=== PATIENT | male | born 1965 | race Caucasian/White ===

== ENCOUNTER → 2021-03-05 16:01 | Outpatient (BNVA) | payer MEDICARE, SELFPAY | PROVIDERS: Visit Provider Nurse Practitioner Family | DX: I10 Essential (primary) hypertension (principal); R03.0 Elevated blood-pressure reading, without diagnosis of hypertension; Z12.5 Encounter for screening for malignant neoplasm of prostate; Z68.34 Body mass index [BMI] 34.0-34.9, adult | CPT/HCPCS: 80053; 80061; 85025; G0103 ==

== ENCOUNTER → 2021-03-08 10:54 | Outpatient (BNVA) | payer MEDICARE, SELFPAY | PROVIDERS: Visit Provider Nurse Practitioner Family | DX: I10 Essential (primary) hypertension (principal) | CPT/HCPCS: 80053 ==

== ENCOUNTER 2021-07-30 14:06 | Inpatient (IN) | payer MEDICARE, SELFPAY ==
[2021-07-30] VITALS (10 sets, daily range): BP systolic 129–144; BP diastolic 66–87; PULSE 89–101; RESP 16–18; TEMP 36.5–37.6; O2SAT 93–99; BMI 34.7
--- NOTE | 2021-07-30 14:43 | W.ED.ABDPA2 ---
HPI - Abdominal Pain General: Chief Complaint: Abdominal Pain Stated Complaint: abdomen pain Time Seen by Provider: 07/30/21 14:38 Source: patient Mode of arrival: ambulatory Limitations: no limitations History of Present Illness: 55-year-old male presents to the emergency room with complaints of abdominal pain states been going on for last 3 days began after he did some heavy lifting while working outside states he felt a pulling sensation in his abdomen since then he has had very few stools have been black in nature he just generally not felt well he continues to this diffuse abdominal pain was able to get him to localize it more to the left lower quadrant denies any hematochezia melena hematemesis coffee-ground emesis no dysuria urgency or frequency. He has been very nauseous. MD elicited complaint: abdominal pain Onset (ago): day(s) Pain Consistency: constant Quality: cramping Radiation: none Migration to: no migration Exacerbating factors: eating and movement Relieving factors: rest Associated Symptoms: Reports bloating, change in bowel habits, GI cramping and melena; Denies anorexia, belching, change in stool character, chills, coffee ground emesis, constipation, diarrhea, dyspepsia, dysuria, excessive flatus, fever(s), heartburn, hematochezia, hematuria, hematemesis, fecal incontinence, loose stools, nausea, poor appetite, syncope and vomiting Review of Systems Const: Denies: fever(s) or chills ENMT: Denies: throat pain, ear or mastoid pain, nasal discharge or nasal congestion Card: Denies: syncope Resp: Denies: dyspnea, productive cough or non-productive cough GI: Reports: bloating, GI cramping, change in bowel habits and melena; Denies: nausea, vomiting, hematemesis, coffee ground emesis, heartburn, diarrhea, constipation, belching, excessive flatus, fecal incontinence, change in stool character or hematochezia : Denies: flank pain, difficulty urinating, dysuria, urinary frequency, urinary urgency or hematuria Skin/Breast: Denies: rash or pruritus PFS ED PFSH: Medical History Neuropathy Surgical History History of laminectomy History of spinal fusion 2004 Family History Grandmother CAD (coronary artery disease) Grandfather CAD (coronary artery disease) Father Cancer Mother Multiple sclerosis Social History Smoking and tobacco status: current some day smoker cigarettes [ Other cigarette details: only occasionally] Alcohol intake: current Alcohol intake frequency: few times a month Physical Exam Const: COMMON NORMALS: no acute distress GENERAL APPEARANCE: cooperative and comfortable ORIENTATION/CONSCIOUSNESS: Yes awake, Yes oriented to person, Yes oriented to place and Yes oriented to time HENMT: COMMON NORMALS: normocephalic, atraumatic and hearing grossly normal bilaterally HEAD & SCALP: normocephalic and atraumatic Neck/C-Spine: COMMON NORMALS: no JVD Resp: COMMON NORMALS: normal respiratory effort, No retractions, No use of accessory muscles and clear to auscultation bilaterally AUSCULTATION: clear to auscultation bilaterally Cardio: COMMON NORMALS: no JVD, regular rate, regular rhythm and No murmurs present (Cardio) RATE: regular rate RHYTHM: regular rhythm GI: COMMON NORMALS: Soft to palpation and No hepatosplenomegaly present AUSCULTATION: Yes normoactive bowel sounds PALPATION: Yes Soft to palpation, No Tenderness to palpation present (GI), No Guarding due to palpation present (GI) and Yes No hepatosplenomegaly present Extremity: COMMON NORMALS: normal to inspection, capillary refill normal, no clubbing, cyanosis or edema, no calf tenderness and no pedal edema Neuro: SENSORIUM/ORIENTATION: Yes oriented to person, Yes oriented to place and Yes oriented to time Skin: COMMON NORMALS: no rashes or lesions noted GENERAL SKIN EXAM: no rashes or lesions noted Course Vital Signs: Vital signs: Vital Signs Temperature 99.7 F H 07/30/21 14:26 Pulse Rate 97 07/30/21 15:27 Respiratory Rate 16 07/30/21 15:27 Blood Pressure 135/87 07/30/21 15:27 Pulse Oximetry 95 07/30/21 15:27 MDM - Abdominal Pain Medical Decision Making Pyelonephritis microabscess. Reviewed with Dr. Cazares as well as with Dr. Lyon. At this point Dr. Lyon did not feel there is any interventions or procedures he would need to undertake for this hospitalization with IV antibiotics discussed with hospitalist orders written Medical Records I reviewed the patient's medical records. Lab Data I reviewed the patient's lab results. : 07/30/21 14:50 07/30/21 16:08 Labs/Radiology: Radiology Impressions Abdomen/Pelvis CT 07/30/21 15:06 IMPRESSION: 1. Moderate to severe LEFT pyelonephritis with small microabscesses developing in the upper pole cortex. 2. Moderate perinephric edematous stranding with thickening of the perirenal fascia. 3. Prior appendectomy. Laboratory Results WBC 18.2 10^3/uL (4.0-10.0) H 07/30/21 14:50 RBC 4.98 10^6/uL (4.1-5.3) 07/30/21 14:50 Hgb 15.3 g/dL (11.7-16.6) 07/30/21 14:50 Hct 44.4 % (42.0-52.0) 07/30/21 14:50 MCV 89.2 fl (80-94) 07/30/21 14:50 MCH 30.7 pg (28.0-34.0) 07/30/21 14:50 MCHC 34.5 g/dL (30.0-36.0) 07/30/21 14:50 RDW 12.8 % (12.1-15.1) 07/30/21 14:50 Plt Count 232 10^3/cmm (130-400) 07/30/21 14:50 MPV 9.7 fL (7.4-10.4) 07/30/21 14:50 Neut % (Auto) 76.2 % 07/30/21 14:50 Lymph % (Auto) 10.4 % 07/30/21 14:50 Edmunds % (Auto) 11.9 % 07/30/21 14:50 Eos % (Auto) 0.6 % 07/30/21 14:50 Baso % (Auto) 0.3 % 07/30/21 14:50 Neut # (Auto) 13.85 10^3/uL (1.8-7.7) H 07/30/21 14:50 Lymph # (Auto) 1.9 10^3/uL (0.8-4.8) 07/30/21 14:50 Edmunds # (Auto) 2.2 10^3/uL (0.2-0.9) H 07/30/21 14:50 Eos # (Auto) 0.1 10^3/uL (0.0-0.8) 07/30/21 14:50 Baso # (Auto) 0.1 10^3/uL (0.0-0.1) 07/30/21 14:50 Nucleated RBC % (auto) 0 % 07/30/21 14:50 Nucleated RBCs # 0.0 /100WBC 07/30/21 14:50 Sodium 133 mmol/L (136-145) L 07/30/21 16:08 Potassium 3.7 mmol/L (3.5-5.1) 07/30/21 16:08 Chloride 96 mmol/L (98-107) L 07/30/21 16:08 Carbon Dioxide 24 mmol/L (22-29) 07/30/21 16:08 Anion Gap 16.7 (5-19) 07/30/21 16:08 BUN 10 mg/dL (6-20) 07/30/21 16:08 Creatinine 0.9 mg/dL (0.7-1.2) 07/30/21 16:08 GFR Calculation 87.6 mL/min (90-130) L 07/30/21 16:08 Glucose 91 mg/dL (65-115) 07/30/21 16:08 Calculated Osmolality 275 mOsm/kg (285-295) L 07/30/21 16:08 Lactic Acid 0.9 mmol/L (0.5-2.2) 07/30/21 16:40 Calcium 8.8 mg/dL (8.5-10.5) 07/30/21 16:08 Total Bilirubin 1.0 mg/dL (0.15-1.2) 07/30/21 16:08 AST 19 U/L (0-40) 07/30/21 16:08 ALT 33 U/L (0-41) 07/30/21 16:08 Alkaline Phosphatase 75 IU/L (40-130) 07/30/21 16:08 Total Protein 6.9 g/dL (6.6-8.7) 07/30/21 16:08 Albumin 3.7 g/dL (3.5-5.2) 07/30/21 16:08 Globulin 3.2 g/dL (1.3-4.6) 07/30/21 16:08 Lipase 14 U/L (13-60) 07/30/21 16:08 Urine Color Dark yellow (Yellow) 07/30/21 15:25 Urine Appearance Clear (CLEAR) 07/30/21 15:25 Urine pH 5 (5-7) 07/30/21 15:25 Ur Specific [place] 1.020 (1.005-1.030) 07/30/21 15:25 Urine Protein Trace (Negative) 07/30/21 15:25 Urine Glucose (UA) Norm (Normal) 07/30/21 15:25 Urine Ketones 2+ (Negative) H 07/30/21 15:25 Urine Blood 3+ (Negative) H 07/30/21 15:25 Urine Nitrate Negative (Negative) 07/30/21 15:25 Urine Bilirubin 1+ (Negative) H 07/30/21 15:25 Urine Urobilinogen 4 mg/dL (Negative) H 07/30/21 15:25 Ur Leukocyte Esterase Negative (Negative) 07/30/21 15:25 Urine RBC Rare /hpf (0-2) 07/30/21 15:25 Urine WBC 0-4 /hpf (0-5) H 07/30/21 15:25 Ur Squamous Epith Cells None /hpf (0-5) 07/30/21 15:25 Amorphous Sediment Not Reportable 07/30/21 15:25 Urine Bacteria Trace /hpf (NONE) 07/30/21 15:25 Discharge Plan Discharge Patient Disposition: Admitted As Inpatient Clinical Impression: Acute pyelonephritis Condition: Stable Prescriptions: No Action trazodone 150 mg tablet 150 mg PO BEDTIME PRN (Reason: Sleep) 0RF gabapentin 600 mg tablet 600 mg PO QID Qty: 120 5RF ibuprofen 200 mg Tablet 600 mg PO Q8H PRN (Reason: Pain) 0RF loratadine [Claritin] 10 mg Tablet 10 mg PO BEDTIME 0RF Patient Instructions: Opioid Safety Coding Level of Care Code ED Medical Records Coordinator for Kristing Fwd Exam Comprehensive
--- NOTE | 2021-07-30 15:06 | CT_ITS ---
WS: [id number] CT ABDOMEN AND PELVIS WITH CONTRAST HISTORY: abd pain TECHNIQUE: Imaging performed of the abdomen and pelvis with IV contrast. Single phase imaging of the abdomen. Coronal and sagittal reformats are submitted. All CT scans at [facility] use at [facility] one of these dose optimization techniques: automated exposure control; mA and/or kV adjustment per patient size (includes targeted exams where dose is matched to clinical indication); or iterative re construction. IV CONTRAST: Omnipaque 300; 95 mL IV. Oral contrast: No DLP: 1925.6 mGy.cm COMPARISON: None available. Lower thorax: Mild dependent changes at the lung bases. Heart is normal size. No hiatal hernia. Liver/biliary system: Normal size with no intrahepatic dilatation. Normal portal vein enhancement. Gallbladder: Normal. No gallstones or wall thickening. No pericholecystic fluid. Pancreas: Normal size pancreas and pancreatic duct. No adjacent inflammation. Spleen: Normal size spleen. No mass or infarct. Adrenal glands: Normal. Right kidney: Normal size kidney. 5 mm cortical hypodensity in the mid kidney. No obstruction. Left kidney: Abnormal kidney. There is moderate enlargement and perinephric stranding. Area of decrea sed enhancement involving a large portion of the upper pole. There are small developing microabscesse s in the upper pole cortex. Wedge-shaped area of limited enhancement in the mid kidney. There is a sm all cortical cyst measuring 1.2 cm in the mid kidney. In the upper pole there are small loculated flu id collections involving the cortex of the kidney. There is a moderate amount of adjacent perinephric stranding with thickening of the perirenal fascia. No obstruction of the kidney. Aorta: Mild atherosclerosis aorta. The proximal mesenteric arteries are well-opacified. Mild atherosc lerotic plaque in the mid SMA. Renal arteries are both enhancing. Lymphadenopathy: None. Free fluid: None. GI tract: Negative study stomach and small bowel. No obstruction. Slight increased amount of fluid wi thin the colon. Prior appendectomy. Abdominal wall: Fat containing umbilical hernia. Pelvis: No free fluid in the pelvis. Mild enlargement the prostate gland with central calcification. Bones: Posterior lumbar fusion at L4-5. CT/CT abdomen pelvis w con* [id number] IMPRESSION: 1. Moderate to severe LEFT pyelonephritis with small microabscesses developing in the upper pole cortex. 2. Moderate perinephric edematous stranding with thickening of the perirenal f ascia. 3. Prior appendectomy.
[2021-07-30 15:18] LABS: Basophils # 0.1 10^3/uL (0.0-0.1); Basophils % 0.3 %; Eosinophils # 0.1 10^3/uL (0.0-0.8); Eosinophils % 0.6 %; Hematocrit 44.4 % (42.0-52.0); Hemoglobin 15.3 g/dL (11.7-16.6); Lymphocytes # 1.9 10^3/uL (0.8-4.8); Lymphocytes % 10.4 %; Mean Corpuscular HGB Conc 34.5 g/dL (30.0-36.0); Mean Corpuscular Hemoglobin 30.7 pg (28.0-34.0); Mean Corpuscular Volume 89.2 fl (80-94); Mean Platelet Volume 9.7 fL (7.4-10.4); Monocytes # 2.2 10^3/uL (0.2-0.9); Monocytes % 11.9 %; Neutrophils # 13.85 10^3/uL (1.8-7.7); Neutrophils % 76.2 %; Nucleated Red Blood Cells % 0 %; Platelet Count 232 10^3/cmm (130-400); Red Blood Count 4.98 10^6/uL (4.1-5.3); Red Cell Distribution Width 12.8 % (12.1-15.1); White Blood Count 18.2 10^3/uL (4.0-10.0)
[2021-07-30] MEDS: sodium chloride 0.9% 1,000 ML 999 ML IV (15:19)
[2021-07-30] MEDS: iohexol 300 mg/mL 100 mL Btl IV (15:33)
[2021-07-30 16:06] LABS: Add Urine Microscopic? YES; Bilirubin Urine 1+ (Negative); Blood Urine 3+ (Negative); Glucose Urine UA Norm (Normal); Ketones Urine 2+ (Negative); Leukocyte Esterase Urine Negative (Negative); Nitrate Urine Negative (Negative); Protein Urine Trace (Negative); Urine Appearance Clear (CLEAR); Urine Color Dark Yellow (Yellow); Urobilinogen Urine 4 mg/dL (Negative); pH Urine 5 (5-7)
[2021-07-30 16:07] LABS: Add Urine Culture? No; Bacteria Urine TRACE /hpf; RBC Urine RARE /hpf (0-2); WBC Urine 0-4 /hpf (0-5)
[2021-07-30] MEDS: cefTRIAXone 1,000 MG in sodium chloride 0.9% (plus) 50 ML 100 MG IV (16:39)
[2021-07-30 16:58] LABS: Alanine Aminotransferase 33 U/L (0-41); Albumin Level 3.7 g/dL (3.5-5.2); Alkaline Phosphatase 75 IU/L (40-130); Blood Urea Nitrogen 10 mg/dL (6-20); Calcium 8.8 mg/dL (8.5-10.5); Carbon Dioxide 24 mmol/L (22-29); Chloride 96 mmol/L (98-107); Creatinine Clr Calc Pharmacy 111.5725; Globulin 3.2 g/dL (1.3-4.6); Glomerular Filtration Rate 87.6 mL/min (90-130); Glucose 91 mg/dL (65-115); Lipase 14 U/L (13-60); Osmolality Calculated 275 mOsm/kg (285-295); Sodium 133 mmol/L (136-145); Total Protein 6.9 g/dL (6.6-8.7)
[2021-07-30 17:04] LABS: Anion Gap 16.7 (5-19); Aspartate Amino Transferase 19 U/L (0-40); Potassium 3.7 mmol/L (3.5-5.1)
[2021-07-30 17:11] LABS: Lactic Sepsis W/Reflex 0.9 mmol/L (0.5-2.2)
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
[2021-07-30 18:29] LABS: Procalcitonin 0.14 ng/mL (0-0.5)
[2021-07-30] MEDS: sodium chloride 0.9% 1,000 ML 75 ML IV (19:51)
[2021-07-30] MEDS: piperacillin-tazobactam 3.375 GM in sodium chloride 0.9% (plus) 50 ML IV (19:52)
[2021-07-30 20:01] LABS: Thyroid Stimulating Hormone 1.26 uIU/mL (0.27-4.20)
[2021-07-30] MEDS: trazodone 150 mg Tablet PO (20:03)
[2021-07-30] MEDS: gabapentin 300 mg Capsule 600 MG PO (20:03)
[2021-07-30] MEDS: loratadine 10 mg Tablet PO (20:03)
[2021-07-30] MEDS: morphine 4 mg/mL SDV 1 mL IVP (21:05)
[2021-07-30 21:17] LABS: Estmated Average Glucose 105; Hemoglobin A1C 5.3 % (4.0-6.0)
[2021-07-30 21:51] LABS: Amphetamines Screen Urine Negative (Negative); Barbiturates Screen Urine Negative (Negative); Benzodiazepines Screen Urine Negative (Negative); Cocaine Screen Urine Negative (Negative); Opiate Screen Urine Negative (Negative); PCP Screen Urine Negative (Negative); THC Screen Urine Positive (Negative)
[2021-07-31] VITALS (9 sets, daily range): BP systolic 139–155; BP diastolic 85–99; PULSE 90–102; RESP 16–20; TEMP 36.6–37.1; O2SAT 92–96
[2021-07-31] MEDS: morphine 4 mg/mL SDV 1 mL IVP ×3 (01:06→17:13)
[2021-07-31] MEDS: piperacillin-tazobactam 3.375 GM in sodium chloride 0.9% (plus) 50 ML IV ×3 (03:16→19:51)
[2021-07-31] MEDS: gabapentin 300 mg Capsule 600 MG PO ×4 (03:40→20:46)
--- NOTE | 2021-07-31 05:26 | NUR.SHIFT ---
Patient up most of this shift. Multiple complaints of pain made even after PRN pain medications were given along with scheduled home medications. Patient states that pain is in his abdomen and also from his neuropathy in his feet. Patient did have concern about timing of gabapentin, pharmacy contacted and times changed to align with patient's home schedule QID. Alert and oriented and up ad mauricio in room without distress. Noted to be sitting at bedside this morning. Voiding WNL. Ambulates without device without difficulty. Did have complaint about IV pump infusion noise so ear plugs were found and given to patient for comfort. IV in right AC infusing NS at 75ml/hr also used for IV antibiotics, IV in left hand occluded and removed this shift. Urine specimen collected and sent to lab per orders.
[2021-07-31 06:04] LABS: Basophils # 0.1 10^3/uL (0.0-0.1); Basophils % 0.4 %; Eosinophils # 0.2 10^3/uL (0.0-0.8); Eosinophils % 1.7 %; Hematocrit 40.3 % (42.0-52.0); Hemoglobin 13.6 g/dL (11.7-16.6); Lymphocytes # 1.8 10^3/uL (0.8-4.8); Lymphocytes % 12.9 %; Mean Corpuscular HGB Conc 33.7 g/dL (30.0-36.0); Mean Corpuscular Hemoglobin 30.8 pg (28.0-34.0); Mean Corpuscular Volume 91.2 fl (80-94); Mean Platelet Volume 9.9 fL (7.4-10.4); Monocytes # 1.9 10^3/uL (0.2-0.9); Monocytes % 13.5 %; Neutrophils # 9.73 10^3/uL (1.8-7.7); Neutrophils % 70.8 %; Nucleated Red Blood Cells % 0 %; Platelet Count 213 10^3/cmm (130-400); Red Blood Count 4.42 10^6/uL (4.1-5.3); Red Cell Distribution Width 12.7 % (12.1-15.1); White Blood Count 13.7 10^3/uL (4.0-10.0)
[2021-07-31 06:25] LABS: C Reactive Protein 181.5 mg/L (0.0-4.9); Magnesium 2.1 mg/dL (1.7-2.3)
[2021-07-31 06:26] LABS: Anion Gap 19.3 (5-19); Blood Urea Nitrogen 10 mg/dL (6-20); Calcium 8.9 mg/dL (8.5-10.5); Carbon Dioxide 20 mmol/L (22-29); Chloride 101 mmol/L (98-107); Glomerular Filtration Rate 100.4 mL/min (90-130); Glucose 91 mg/dL (65-115); Osmolality Calculated 283 mOsm/kg (285-295); Potassium 3.3 mmol/L (3.5-5.1); Sodium 137 mmol/L (136-145)
--- NOTE | 2021-07-31 06:26 | PC.NURSE ---
Patient is independent and up ad mauricio in room. Encouraged to sit up in chair for breakfast.
[2021-07-31] MEDS: morphine IR 15 mg Tablet PO ×2 (12:49→20:49)
[2021-07-31] MEDS: sodium chloride 0.9% 1,000 ML 75 ML IV (13:20)
--- NOTE | 2021-07-31 13:43 | P.PN_ITS ---
Subjective Subjective: Seen and examined this morning. No acute events overnight. Patient states he feels better and the pain in his flank is also improved. Vitals/I&O/Wt Last Vital Signs Temp 98.0 F 07/31/21 11:18 Pulse 93 07/31/21 11:18 Resp 17 07/31/21 11:18 BP 140/94 07/31/21 11:18 Pulse Ox 95 07/31/21 11:18 07/30/21 07/31/21 07/31/21 22:59 06:59 14:59 Intake Total 1530 / 1530 50 / 1580 2210 / 2210 Balance 1530 / 1530 50 / 1580 2210 / 2210 Weight last 48 hrs Weight 106.594 kg Physical Exam Narrative: General: Alert oriented x3, patient seen sitting up in chair in good spirits. HEENT: Normocephalic, atraumatic, EOMI, breathing normally Cardio: Regular rate rhythm, normal S1-S2_ Respiratory: Good bilateral air entry, no wheezes no rhonchi appreciated GI: Abdomen soft, Behavior: Appropriate and cooperative Extremities: No lower extremity edema Data : 07/31/21 05:10 07/31/21 05:10 Micro: Microbiology 07/30/21 16:40 Blood Culture - Preliminary Blood Staphylococcus epidermidis 07/30/21 16:40 Blood Culture - Preliminary Blood SPECIMEN COLLECTED A&P Assessment and plan (1) Acute pyelonephritis: Status: Acute (2) Screening for malignant neoplasm of prostate: Status: Acute (3) Essential hypertension: Status: Acute (4) Neuropathy: Status: Acute Plan #Acute pyelonephritis with microabscesses in upper pole #Benign prostatic hyperplasia ?We will continue patient on Zosyn until results of urine culture come back ?He will need a urology referral at discharge. Patient does not want to start any BPH medications while here. ?Patient is also due for colonoscopy. We will give him referral for Dr. Taylor at discharge. ?Continue pain management with morphine and gabapentin for now. At home patient uses cannabinoid and gabapentin. ?PSA reviewed. ?Blood culture positive for staph epidermidis. Will repeat blood culture. Full code Attestations Medical Necessity Statement*: Requires inpatient stay due to IV antibiotics, positive blood culture. Need to see sensitivity culture for urine before discharge is appropriate antibiotics and course can be decided. 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
[2021-07-31 17:55] LABS: Bacillus cereus group Not Detected (NOT DETECT); Bacillus subtillis group Not Detected (NOT DETECT); Corynebacterium Not Detected (NOT DETECT); Cutibacterium acnes (P.acnes) Not Detected (NOT DETECT); Enterococcus Not Detected (NOT DETECT); Enterococcus faecalis Not Detected (NOT DETECT); Enterococcus faecium Not Detected (NOT DETECT); Lactobacillus species Not Detected (NOT DETECT); Listeria Not Detected (NOT DETECT); Listeria monocytogenes Not Detected (NOT DETECT); Micrococcus Not Detected (NOT DETECT); Pan Candida Not Detected (NOT DETECT); Pan Gram-Negative Not Detected (NOT DETECT); Staphylococcus epidermidis Detected (NOT DETECT); Staphylococcus lugdunensis Not Detected (NOT DETECT); Staphylococcus species Detected (NOT DETECT); Streptococcus agalactiae Not Detected (NOT DETECT); Streptococcus anginosus group Not Detected (NOT DETECT); Streptococcus pneumoniae Not Detected (NOT DETECT); Streptococcus pyogenes Not Detected (NOT DETECT); Streptococcus species Not Detected (NOT DETECT); mecA Detected (NOT DETECT); mecC Not Detected (NOT DETECT)
[2021-07-31] MEDS: loratadine 10 mg Tablet PO (20:46)
[2021-07-31] MEDS: trazodone 150 mg Tablet PO (20:46)
[2021-08-01] VITALS (10 sets, daily range): BP systolic 129–157; BP diastolic 85–111; PULSE 81–100; RESP 14–18; TEMP 36.8–37.1; O2SAT 90–95
[2021-08-01] MEDS: sodium chloride 0.9% 1,000 ML 75 ML IV ×2 (00:23→13:56)
[2021-08-01] MEDS: gabapentin 300 mg Capsule 600 MG PO ×4 (03:39→21:54)
[2021-08-01] MEDS: piperacillin-tazobactam 3.375 GM in sodium chloride 0.9% (plus) 50 ML IV ×3 (03:41→21:55)
[2021-08-01 06:15] LABS: Basophils # 0.1 10^3/uL (0.0-0.1); Basophils % 0.5 %; Eosinophils # 0.3 10^3/uL (0.0-0.8); Eosinophils % 2.6 %; Hematocrit 41.2 % (42.0-52.0); Hemoglobin 14.1 g/dL (11.7-16.6); Lymphocytes # 1.5 10^3/uL (0.8-4.8); Lymphocytes % 11.1 %; Mean Corpuscular HGB Conc 34.2 g/dL (30.0-36.0); Mean Corpuscular Hemoglobin 30.5 pg (28.0-34.0); Mean Corpuscular Volume 89.2 fl (80-94); Mean Platelet Volume 9.8 fL (7.4-10.4); Monocytes # 1.7 10^3/uL (0.2-0.9); Neutrophils # 9.44 10^3/uL (1.8-7.7); Neutrophils % 72.3 %; Nucleated Red Blood Cells % 0 %; Platelet Count 275 10^3/cmm (130-400); Red Blood Count 4.62 10^6/uL (4.1-5.3); Red Cell Distribution Width 12.6 % (12.1-15.1); White Blood Count 13.1 10^3/uL (4.0-10.0)
[2021-08-01 07:00] LABS: Anion Gap 15.5 (5-19); Blood Urea Nitrogen 6 mg/dL (6-20); Calcium 9.2 mg/dL (8.5-10.5); Carbon Dioxide 23 mmol/L (22-29); Chloride 103 mmol/L (98-107); Glomerular Filtration Rate 117.1 mL/min (90-130); Glucose 105 mg/dL (65-115); Magnesium 2.1 mg/dL (1.7-2.3); Osmolality Calculated 284 mOsm/kg (285-295); Potassium 3.5 mmol/L (3.5-5.1); Sodium 138 mmol/L (136-145)
--- NOTE | 2021-08-01 11:32 | PM.PN ---
Subjective Subjective: seen this AM. Patient is feeling better. Urine culture still pending. Flank pain has improved. Staph epi in 1 BCx. Repeat BCx NTD Vitals/I&O/Wt Last Vital Signs Temp 98.7 F 08/01/21 08:02 Pulse 85 08/01/21 08:28 Resp 16 08/01/21 08:28 BP 129/88 08/01/21 08:02 Pulse Ox 95 08/01/21 08:28 07/31/21 08/01/21 08/01/21 22:59 06:59 14:59 Intake Total 50 / 2260 878.75 / 3138.75 170 / 170 Balance 50 / 2260 878.75 / 3138.75 170 / 170 Weight last 48 hrs Weight 106.594 kg Physical Exam Narrative: General: Alert oriented x3, patient seen sitting up in chair in good spirits. Cardio: Regular rate rhythm, normal S1-S2_ Respiratory: Good bilateral air entry, no wheezes no rhonchi appreciated GI: Abdomen soft, :no flank pain upon kidney punch Behavior: Appropriate and cooperative Extremities: No lower extremity edema Data : 08/01/21 05:25 08/01/21 05:25 Micro: Microbiology 07/30/21 16:40 Blood Culture - Preliminary Blood NEGATIVE TO DATE 07/31/21 15:04 Blood Culture - Preliminary Blood SPECIMEN COLLECTED 07/31/21 15:04 Blood Culture - Preliminary Blood SPECIMEN COLLECTED 07/30/21 16:40 Blood Culture - Preliminary Blood Staphylococcus epidermidis A&P Assessment and plan (1) Acute pyelonephritis: Status: Acute (2) Essential hypertension: Status: Acute (3) Systolic blood pressure greater than or equal to 140 mm Hg: Status: Acute (4) Neuropathy: Status: Acute Plan #Acute pyelonephritis with microabscesses in upper pole #Benign prostatic hyperplasia #Hypertension ?We will continue patient on Zosyn until results of urine culture come back ?He will need a urology referral at discharge.? Patient does not want to start any BPH medications while here. ?Patient is also due for colonoscopy.? We will give him referral for Dr. Taylor at discharge. ?Continue pain management with morphine and gabapentin for now.? At home patient uses cannabinoid and gabapentin. ?PSA reviewed. ?Blood culture positive for staph epidermidis.? Repeat BCX NTD - Will call lab to inquire about urine culture - Will discuss with pt need of starting anti-hypertensive medication Full Code Attestations Medical Necessity Statement*: > 24 hr stay. Awaiting urine culture results Coding Level of Care Code Acute Open End Spinning Operator for g Fwd Diagnoses Acute pyelonephritis N10 Essential hypertension I10 Systolic blood pressure greater than or equal to 140 mm Hg R03.0 Neuropathy G62.9
[2021-08-01] MEDS: ondansetron 2 mg/ML SDV 2 mL 4 MG IVP (13:03)
[2021-08-01 18:32] LABS: Chol HDL Ratio 6.32 mg/dL (1.0-5.00); Cholesterol 234 mg/dL (0-200); HDL Cholesterol 37 mg/dL (60-100); LDL Cholesterol Calculated 168 mg/dL (50-129); LDL HDL Ratio 4.54 RATIO (0.00-3.22); Triglycerides 143 mg/dL (0-150)
[2021-08-01] MEDS: morphine IR 15 mg Tablet PO (21:53)
[2021-08-01] MEDS: loratadine 10 mg Tablet PO (21:54)
[2021-08-01] MEDS: trazodone 150 mg Tablet PO (21:54)
[2021-08-01 22:10] LABS: Estmated Average Glucose 103; Hemoglobin A1C 5.2 % (4.0-6.0)
[2021-08-01] MEDS: morphine 4 mg/mL SDV 1 mL IVP (23:57)
[2021-08-02] VITALS (8 sets, daily range): BP systolic 129–164; BP diastolic 71–87; PULSE 78–96; RESP 16–20; TEMP 36.7–36.8; O2SAT 94–97
[2021-08-02] MEDS: piperacillin-tazobactam 3.375 GM in sodium chloride 0.9% (plus) 50 ML IV ×2 (03:20→12:45)
[2021-08-02] MEDS: sodium chloride 0.9% 1,000 ML 75 ML IV (03:20)
[2021-08-02] MEDS: gabapentin 300 mg Capsule 600 MG PO ×3 (03:20→14:23)
[2021-08-02] MEDS: morphine IR 15 mg Tablet PO ×2 (03:57→14:23)
[2021-08-02 06:06] LABS: Basophils # 0.1 10^3/uL (0.0-0.1); Basophils % 0.5 %; Eosinophils # 0.4 10^3/uL (0.0-0.8); Eosinophils % 3.6 %; Hematocrit 38.8 % (42.0-52.0); Hemoglobin 13.2 g/dL (11.7-16.6); Lymphocytes # 2.6 10^3/uL (0.8-4.8); Lymphocytes % 25.3 %; Mean Corpuscular Hemoglobin 30.8 pg (28.0-34.0); Mean Corpuscular Volume 90.4 fl (80-94); Mean Platelet Volume 9.6 fL (7.4-10.4); Monocytes # 1.4 10^3/uL (0.2-0.9); Monocytes % 13.6 %; Neutrophils # 5.73 10^3/uL (1.8-7.7); Neutrophils % 56.6 %; Nucleated Red Blood Cells % 0 %; Platelet Count 265 10^3/cmm (130-400); Red Blood Count 4.29 10^6/uL (4.1-5.3); Red Cell Distribution Width 12.5 % (12.1-15.1); White Blood Count 10.1 10^3/uL (4.0-10.0)
[2021-08-02] MEDS: sennosides-docusate Tablet 1 TAB PO (08:09)
--- NOTE | 2021-08-02 12:10 | P.DS_ITS ---
Discharge Providers Date of Admission: 07/30/21 17:00 Date of Discharge: August 02, 2021 Attending Provider at Admission: Addis George MD Attending Provider at Discharge: Addis George MD Diagnoses at Discharge Discharge Diagnosis (1) Acute pyelonephritis: Status: Acute (2) Essential hypertension: Status: Acute (3) Systolic blood pressure greater than or equal to 140 mm Hg: Status: Acute (4) Neuropathy: Status: Acute Reason for Visit Reason for Visit: abdomen pain Brief History: HPI as per Dr Macario Vásquez Shaan Roberson is a 55 year old male who does not have significant past medical history presented today with chief complaint of nausea, vomiting and worsening abdominal pain.? 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 He describes his symptoms as toothpaste being squished because of abdominal muscle tension.? His symptoms did not resolve at all on Friday he decided to come to the ER for further evaluation.? He has not noticed any fever however endorsing chills/rigors.? He has not noticed burning on voiding urine until he arrived in the ER.? He has not noticed any rectal pain.? Previous history of prostatitis.? Patient is stating that he is living a very healthy life, he does not carry any diagnosis of hypertension, diabetes, UT, CHF or stroke.? He is endorsing signs of BPH such as nocturia. We will check PSA level, in the ER he has been diagnosed with pyelonephritis, leukocytosis positive, he has been given ceftriaxone, a liter bolus he is afebrile, hemodynamically stable He is anxious and wants to return home to take care of his who is alone and has bipolar/personality disorder, ER doctor did speak with Dr. Lyon who recommended IV antibiotics for now CT scan showing left pyelonephritis with small microabscesses Hospital Course Hospital Course Patient was treated for acute pyelonephritis with microabscesses during his hospital stay. He was treated with Zosyn IV. Urine culture did not grow any apparent bacteria. First set of blood cultures were positive for staph epidermidis which are most likely a contaminant. I called the lab as well. Second set of repeat blood cultures were negative. Patient asymptomatic. He remained afebrile during hospital stay. Flank pain improved significantly. Urology was called at admission by ED physician and case was discussed with no intervention recommended. I again discussed case with urology for discharge. Patient will be following up with Dr. Lyon as an outpatient after discharge. I will prescribe Levaquin orally to complete 14-day antibiotic course. Patient also has symptoms of BPH and he will be following up with Dr. Lyon. During hospital stay patient was noted to be hypertensive and labs showed dyslipidemia. Patient is not interested in starting on any medication at this time. He is due for colonoscopy will be following up with Dr. Taylor for that. Patient's white count has normalized, he has remained afebrile, flank pain is improved, culture data is nondiagnostic. I will discharge patient today to home with close follow-up with primary care doctor and Dr. Lyon. Patient will need to have a repeat CT scan abdomen pelvis by 13 August to ensure abscesses have resolved. He will follow up with Dr. Lyon per the results. Patient also had a gout flare during inpatient stay. He was given colchicine and given a prescription for colchicine as an outpatient as well. Physical Exam Narrative: General: Alert oriented x3, patient seen sitting up in chair in good spirits. Cardio: Regular rate rhythm, normal S1-S2_ Respiratory: Good bilateral air entry, no wheezes no rhonchi appreciated GI: Abdomen soft, :no flank pain upon kidney punch Behavior: Appropriate and cooperative Extremities: No lower extremity edema Discharge Data Studies Completed and Pending Completed Studies During Hospitalization Category Date Time Status CT abdomen pelvis w con* [id number] Stat Cat Scan 07/30/21 15:06 Completed Pending at discharge Category Date Time Status Blood Culture Stat Lab 07/30/21 16:40 Results Blood Culture Stat Lab 07/31/21 15:04 Results Urine Culture Routine Lab 07/30/21 15:25 Results Urine Culture Stat Lab 08/01/21 12:50 Results Radiology Impressions Abdomen/Pelvis CT 07/30/21 15:06 IMPRESSION: 1. Moderate to severe LEFT pyelonephritis with small microabscesses developing in the upper pole cortex. 2. Moderate perinephric edematous stranding with thickening of the perirenal fascia. 3. Prior appendectomy. Laboratory Results WBC 10.1 10^3/uL (4.0-10.0) H 08/02/21 05:25 RBC 4.29 10^6/uL (4.1-5.3) 08/02/21 05:25 Hgb 13.2 g/dL (11.7-16.6) 08/02/21 05:25 Hct 38.8 % (42.0-52.0) L 08/02/21 05:25 MCV 90.4 fl (80-94) 08/02/21 05:25 MCH 30.8 pg (28.0-34.0) 08/02/21 05:25 MCHC 34.0 g/dL (30.0-36.0) 08/02/21 05:25 RDW 12.5 % (12.1-15.1) 08/02/21 05:25 Plt Count 265 10^3/cmm (130-400) 08/02/21 05:25 MPV 9.6 fL (7.4-10.4) 08/02/21 05:25 Neut % (Auto) 56.6 % 08/02/21 05:25 Lymph % (Auto) 25.3 % 08/02/21 05:25 [place] % (Auto) 13.6 % 08/02/21 05:25 Eos % (Auto) 3.6 % 08/02/21 05:25 Baso % (Auto) 0.5 % 08/02/21 05:25 Neut # (Auto) 5.73 10^3/uL (1.8-7.7) 08/02/21 05:25 Lymph # (Auto) 2.6 10^3/uL (0.8-4.8) 08/02/21 05:25 [place] # (Auto) 1.4 10^3/uL (0.2-0.9) H 08/02/21 05:25 Eos # (Auto) 0.4 10^3/uL (0.0-0.8) 08/02/21 05:25 Baso # (Auto) 0.1 10^3/uL (0.0-0.1) 08/02/21 05:25 Nucleated RBC % (auto) 0 % 08/02/21 05:25 Nucleated RBCs # 0.0 /100WBC 08/02/21 05:25 Sodium 138 mmol/L (136-145) 08/01/21 05:25 Potassium 3.5 mmol/L (3.5-5.1) 08/01/21 05:25 Chloride 103 mmol/L (98-107) 08/01/21 05:25 Carbon Dioxide 23 mmol/L (22-29) 08/01/21 05:25 Anion Gap 15.5 (5-19) 08/01/21 05:25 BUN 6 mg/dL (6-20) 08/01/21 05:25 Creatinine 0.7 mg/dL (0.7-1.2) 08/01/21 05:25 GFR Calculation 117.1 mL/min (90-130) 08/01/21 05:25 Glucose 105 mg/dL (65-115) 08/01/21 05:25 Estimat Average Glucose 103 08/01/21 05:10 Hemoglobin A1c 5.2 % (4.0-6.0) 08/01/21 05:10 Calculated Osmolality 284 mOsm/kg (285-295) L 08/01/21 05:25 Lactic Acid 0.9 mmol/L (0.5-2.2) 07/30/21 16:40 Calcium 9.2 mg/dL (8.5-10.5) 08/01/21 05:25 Magnesium 2.1 mg/dL (1.7-2.3) 08/01/21 05:25 Total Bilirubin 1.0 mg/dL (0.15-1.2) 07/30/21 16:08 AST 19 U/L (0-40) 07/30/21 16:08 ALT 33 U/L (0-41) 07/30/21 16:08 Alkaline Phosphatase 75 IU/L (40-130) 07/30/21 16:08 C-Reactive Protein 181.5 mg/L (0.0-4.9) H 07/31/21 05:10 Total Protein 6.9 g/dL (6.6-8.7) 07/30/21 16:08 Albumin 3.7 g/dL (3.5-5.2) 07/30/21 16:08 Globulin 3.2 g/dL (1.3-4.6) 07/30/21 16:08 Triglycerides 143 mg/dL (0-150) 08/01/21 05:25 Cholesterol 234 mg/dL (0-200) H 08/01/21 05:25 LDL Cholesterol, Calc 168 mg/dL (50-129) H 08/01/21 05:25 HDL Cholesterol 37 mg/dL (60-100) L 08/01/21 05:25 LDL/HDL Ratio 4.54 RATIO (0.00-3.22) H 08/01/21 05:25 Cholesterol/HDL Ratio 6.32 mg/dL (1.0-5.00) H 08/01/21 05:25 Lipase 14 U/L (13-60) 07/30/21 16:08 Prostate Specific Ag 2.060 ng/mL (0-4) 07/30/21 16:08 Procalcitonin 0.14 ng/mL (0-0.5) 07/30/21 16:08 TSH 1.26 uIU/mL (0.27-4.20) 07/30/21 16:08 Urine Color Dark yellow (Yellow) 07/30/21 15:25 Urine Appearance Clear (CLEAR) 07/30/21 15:25 Urine pH 5 (5-7) 07/30/21 15:25 Ur Specific [place] 1.020 (1.005-1.030) 07/30/21 15:25 Urine Protein Trace (Negative) 07/30/21 15:25 Urine Glucose (UA) Norm (Normal) 07/30/21 15:25 Urine Ketones 2+ (Negative) H 07/30/21 15:25 Urine Blood 3+ (Negative) H 07/30/21 15:25 Urine Nitrate Negative (Negative) 07/30/21 15:25 Urine Bilirubin 1+ (Negative) H 07/30/21 15:25 Urine Urobilinogen 4 mg/dL (Negative) H 07/30/21 15:25 Ur Leukocyte Esterase Negative (Negative) 07/30/21 15:25 Urine RBC Rare /hpf (0-2) 07/30/21 15:25 Urine WBC 0-4 /hpf (0-5) H 07/30/21 15:25 Ur Squamous Epith Cells None /hpf (0-5) 07/30/21 15:25 Amorphous Sediment Not Reportable 07/30/21 15:25 Urine Bacteria Trace /hpf (NONE) 07/30/21 15:25 Urine Opiates Screen Negative ng/mL (Negative) 07/30/21 21:30 Ur Barbiturates Screen Negative ng/mL (Negative) 07/30/21 21:30 Ur Phencyclidine Scrn Negative ng/mL (Negative) 07/30/21 21:30 Ur Amphetamines Screen Negative ng/mL (Negative) 07/30/21 21:30 U Benzodiazepines Scrn Negative ng/mL (Negative) 07/30/21 21:30 Urine Cocaine Screen Negative ng/mL (Negative) 07/30/21 21:30 U Marijuana (THC) Screen Positive ng/mL (Negative) H 07/30/21 21:30 Vitals Last Vital Signs Temp 98.3 F 08/02/21 11:15 Pulse 82 08/02/21 11:15 Resp 18 08/02/21 11:15 BP 134/71 08/02/21 11:15 Pulse Ox 97 08/02/21 11:15 Discharge Plan Discharge Patient Disposition: Home Condition: Stable Prescriptions: New levofloxacin 750 mg tablet 750 mg PO DAILY 12 Days Qty: 12 0RF colchicine 0.6 mg capsule 0.6 mg PO DAILY 5 Days Qty: 5 0RF Rx Instructions: Start on 08/03/2021. Stop 2 days after gout flare ends Continued trazodone 150 mg tablet 150 mg PO BEDTIME PRN (Reason: Sleep) 0RF gabapentin 600 mg tablet 600 mg PO QID Qty: 120 5RF ibuprofen 200 mg Tablet 600 mg PO Q8H PRN (Reason: Pain) 0RF loratadine [Claritin] 10 mg Tablet 10 mg PO BEDTIME 0RF Discharge Orders: Discharge Order (Routine); Ordered 08/02/21 Ordered By: Addis George Other Ambulatory Orders: CT abdomen pelvis w con* [id number] (Routine) Timeframe: [id number] Facility: [facility] - Location: [facility] Ordered By: Addis George Complete Blood Count w/Auto (Routine) Timeframe: 3 Days Location: Determined by Patient Ordered By: Addis George Referrals: Jordon Taylor MD [Physician] - 08/08/21 11:00 am (Due for colonoscopy, Hypertension Dyslipidemia) Dale Lyno MD [Physician] - 2 weeks (Pyelonephritis with microabscess, BPH Dr. Babb office will call you with appointment information ) Patient Instructions: Opioid Safety Activity Restrictions/Additional Instructions: You have been treated with IV antibiotics for your kidney infection. Your urine culture did not show growth of any bacteria. You will need to follow up with Dr. Lyon for your BPH and current condition. You will need to follow up with your primary care doctor within 4-7 days of discharge. You have been diagnosed with high blood pressure and high cholesterol levels. Please discuss this with your PCP to start medication. You are due for colonoscopy, please see Dr. Taylor for that. If you develop symptoms including but not limited to fever, flank pain, shortness of breath, low blood pressure, pain while urinating or increased frequency urination, please return to the ER. Discharge Attestations Time Spent in Discharge Care*: less than 30 min Quality Metrics Clinical Quality Measures [ No reported AMI, CVA or VTE this stay] Coding Level of Care Code Acute Chg FW [place] note Diagnoses Acute pyelonephritis N10 Essential hypertension I10 Systolic blood pressure greater than or equal to 140 mm Hg R03.0 Neuropathy G62.9
[2021-08-02] MEDS: colchicine 0.6 mg Tablet 1.2 MG PO (12:38)
--- NOTE | 2021-08-02 13:37 | PC.SOCIAL ---
IMM update IMM updated with patient. Verbalized an understanding. Copy Pg 2 provided. Initialled, dated, timed, and placed in chart.
== END 2021-08-02 16:42 | disposition home or self-care (01) | DRG 690 ==
LOC: ER 18:28 → MEDSURG 18:32
PROVIDERS: Internal Medicine; Admitting Provider Internal Medicine; Emergency Provider Family Medicine; Visit Provider Internal Medicine
DX: N10 Acute pyelonephritis (principal); D72.829 Elevated white blood cell count, unspecified; I10 Essential (primary) hypertension; N40.1 Benign prostatic hyperplasia with lower urinary tract symptoms; R35.1 Nocturia; F17.210 Nicotine dependence, cigarettes, uncomplicated; G62.9 Polyneuropathy, unspecified; Z79.899 Other long term (current) drug therapy
CPT/HCPCS: 36415; 74177; 80048; 80053; 80061; 80306; 81001; 83036; 83605; 83690; 83735; 84145; 84153; 84443; 85025; 86140; 87040; 87086; 87150; 87205; 94664; 96365; 99285; J0696; J2270; J2405; J2543; J7030; Q9967

== ENCOUNTER → 2021-08-06 11:40 | Outpatient (BNVA) | payer MEDICARE, SELFPAY | PROVIDERS: PCP Urology; Visit Provider Nurse Practitioner Family | DX: N10 Acute pyelonephritis (principal) | CPT/HCPCS: 81000; 85025 ==

== ENCOUNTER 2021-08-20 06:43 | Day surgery (SDC) | payer MEDICARE, SELFPAY ==
[2021-08-15 14:13] VITALS: BMI 36.1
[2021-08-20 07:15] VITALS: BP 122/79; PULSE 65; RESP 18; TEMP 36.8; O2SAT 95
[2021-08-20] MEDS: sodium chloride 0.9% 1,000 ML 30 ML IV (07:28)
--- NOTE | 2021-08-20 07:33 | W.PM.OPSFHP ---
Same Day Surgery H&P Indication for Procedure/HPI DATE OF PROCEDURE: August 20, 2021 CHIEF COMPLAINT/INDICATIONFOR SURGICAL PROCEDURE: Personal history of colon polyp PREOP DIAGNOSIS: History of polyps PLANNED PROCEDURE: Operation Date: 08/20/21 08:30 Proposed Procedures p Colonoscopy G0105/personal his of colonic polyps Z86.010(Not Applicable) - Jordon Taylor MD Medications/Allergies* Home Medications Medication Instructions Recorded Confirmed Type ibuprofen 200 mg tablet 600 mg PO Q8H PRN 07/30/21 08/20/21 History loratadine 10 mg tablet (Claritin) 10 mg PO BEDTIME 07/30/21 08/20/21 History trazodone 150 mg tablet 150 mg PO BEDTIME PRN 07/30/21 08/20/21 History Allergies/Adverse Reactions Allergy/AdvReac Type Severity Reaction Status Date / Time tramadol [From Ultram] Allergy ALGY-Hives Verified 08/08/21 11:25 Current Medications: Generic Name Dose Route Start Last Admin Trade Name Freq PRN Reason Stop Dose Admin Sodium Chloride 1,000 mls @ 30 mls/hr 08/20/21 07:30 08/20/21 07:28 Sodium Chloride 0.9% IV 30 mls/hr .Q24H BHUMIKA Administration Pertinent History/Comorbid Conditions* Medical History (Updated 08/08/21 @ 11:39 by Jordon Taylor MD) Neuropathy Surgical History (Updated 03/05/21 @ 13:49 by Yesica Alvarado NP) History of laminectomy History of spinal fusion 2004 Family History (Updated 03/05/21 @ 13:36 by Germaine Xavier LPN) CAD (coronary artery disease) Grandmother Grandfather Multiple sclerosis Mother Cancer Father Social History Smoking and tobacco status: current some day smoker cigarettes [ Other cigarette details: only occasionally] Alcohol intake: current Alcohol intake frequency: few times a month Pertinent Exam Findings alert, oriented x 3, clear to auscultation bilaterally, regular rate & rhythm, operative site marked and procedure specific exam findings Recommendations Surgery/Procedure today Coding Level of Care Code Acute Consumer Affairs Director for Carlos Marques
--- NOTE | 2021-08-20 07:48 | ANES.PREANE2 ---
Pre-Anesthetic Assessment Height/Weight: Height 1.75 m Weight 111.13 kg Temp Pulse Resp BP Pulse Ox 98.2 F 65 18 122/79 95 08/20/21 07:15 08/20/21 07:15 08/20/21 07:15 08/20/21 07:15 08/20/21 07:15 Preop Diagnosis: History of polyps Operation Date: 08/20/21 08:30 Proposed Procedures p Colonoscopy G0105/personal his of colonic polyps Z86.010(Not Applicable) - Jordon Taylor MD Familial anesthetic complications: None Was Beta Miriam taken within 24 hours: N/A Was Clonidine taken within 24 hours: N/A Last intake: Intake Last Liquid Date 08/19/21 Last Liquid Time 23:50 Last Solid Date 08/18/21 Last Solid Time 23:50 Social Tobacco and No alcohol Exam alert, oriented x 3, clear to auscultation bilaterally and regular rate & rhythm Airway Submandibular: within normal limits Cervical ROM: within normal limits Mallampati: Class II Dentition: chipped Comments: Comments: large bennett Pulmonary Chronic Obstructive Pulmonary Disease Musc/sk Lower Back Pain Neuropsych Neuropathy Anesthetic Plan ASA status: 3 Anesthesia: MAC Medications/Allergies Home Medications Medication Instructions Recorded Confirmed Last Taken Type gabapentin 600 mg tablet 600 mg PO QID #120 tab 03/21/21 08/20/21 08/19/21 Rx ibuprofen 200 mg tablet 600 mg PO Q8H PRN 07/30/21 08/20/21 2 Weeks Ago History ~08/06/21 loratadine 10 mg tablet (Claritin) 10 mg PO BEDTIME 07/30/21 08/20/21 08/19/21 History trazodone 150 mg tablet 150 mg PO BEDTIME PRN 07/30/21 08/20/21 08/18/21 History Allergies Allergy/AdvReac Type Severity Reaction Status Date / Time tramadol [From Ultram] Allergy ALGY-Hives Verified 08/08/21 11:25 Current Medications Generic Name Dose Route Start Last Admin Trade Name Freq PRN Reason Stop Dose Admin Sodium Chloride 1,000 mls @ 30 mls/hr 08/20/21 07:30 08/20/21 07:28 Sodium Chloride 0.9% IV 30 mls/hr .Q24H BHUMIKA Administration PFSH Anesthesia Medical History Neuropathy Surgical History History of laminectomy History of spinal fusion 2004 Family History Grandmother CAD (coronary artery disease) Grandfather CAD (coronary artery disease) Father Cancer Mother Multiple sclerosis Social History Smoking and tobacco status: current some day smoker cigarettes [ Other cigarette details: only occasionally] Alcohol intake: current Alcohol intake frequency: few times a month Data Anesthesia Cardiac Studies: No Data to Display
[2021-08-20 09:03] VITALS: BP 110/88; PULSE 78; RESP 20; TEMP 36.4; O2SAT 96
[2021-08-20 09:16] VITALS: BP 120/90; PULSE 70; RESP 18; O2SAT 94
[2021-08-20 09:26] VITALS: BP 118/82; PULSE 86; RESP 18; O2SAT 96
--- NOTE | 2021-08-20 14:19 | ANE.PACU2 ---
Inpatient post-anesthesia follow up: Airway intact: Yes Vital signs: Temperature 97.5 F Pulse Rate 86 Respiratory Rate 18 Blood Pressure 118/82 Pulse Oximetry 96 Oxygen Delivery Me thod Room Air Oxygen Flow Rate Fraction of Inspir ed Oxygen Hydration adequate: Yes Nausea and vomiting: No Pain level: 1 Mental status: Baseline
== END 2021-08-20 09:41 | disposition home or self-care (01) ==
PROVIDERS: PCP Urology; Visit Provider Internal Medicine
PROC: 0DJD8ZZ Inspection of Lower Intestinal Tract, Via Natural or Artificial Opening Endoscopic (ICD-10-PCS; CPT 45378; principal; 2021-08-20 08:30)
DX: Z86.010 Personal history of colon polyps (principal); J44.9 Chronic obstructive pulmonary disease, unspecified; Z98.1 Arthrodesis status; Z82.49 Family history of ischemic heart disease and other diseases of the circulatory system; F17.210 Nicotine dependence, cigarettes, uncomplicated
CPT/HCPCS: 45378; J2704; J7030

== ENCOUNTER 2021-08-30 07:21 | Outpatient (CLI) | payer MEDICARE, SELFPAY ==
--- NOTE | 2021-08-30 07:36 | CT_ITS ---
WS: [id number] CT ABDOMEN PELVIS TECHNIQUE: Contrast-enhanced CT of the abdomen and pelvis with coronal and sagittal reformatted image s. CLINICAL INFORMATION: Follow up pyelonephritis COMPARISON: July 30, 2021 DLP: 1319.[address] scans at [facility] use at least one of these dose optimization techniques: automated e xposure control; mA and/or kV adjustment per patient size (includes targeted exams where dose is matc hed to clinical indication); or iterative reconstruction. FINDINGS: Previously described LEFT pyelonephritis appears improved today. Improved inflammatory stranding in t he pararenal fascia. No hydronephrosis in LEFT kidney. Persistent patchy enhancement in the upper bassem e with suggestion resolving small microabscesses. This appears improved from previous. Recommend cont inued surveillance. No drainable fluid collections. RIGHT kidney is normal in appearance. Small LEFT renal cyst measuring 1.6 cm. Tiny RIGHT renal cysts. Mild hepatomegaly. Liver is otherwise normal in appearance. Normal GE junction. Slight atelectasis in the lung bases. Normal spleen. Adrenal glands are normal. Fatty atrophy of the pancreas. Normal froylan jm abdominal aorta. Normal sigmoid colon. No evidence of high-grade small or large bowel obstruction. No free fluid in th e pelvis. Prostate calcification. Prior postoperative changes pedicle screw fixation L5-S1 with inter body fusion grafts. CT/CT abdomen pelvis w con* [id number] IMPRESSION: 1. Improved LEFT pyelonephritis with persistent heterogeneous enhancement in t he upper pole with improving but persistent tiny microabscesses. Recommend cont inued surveillance until resolution. 2. No drainable fluid collections. 3. No hydronephrosis in either kidney. 4. No other significant changes compared to previous.
[2021-08-30] MEDS: iohexol 300 mg/mL 100 mL Btl IV (08:21)
== END 2021-08-30 07:22 | disposition home or self-care (01) ==
LOC: RAD 07:22
PROVIDERS: PCP Urology; Visit Provider Internal Medicine
DX: N10 Acute pyelonephritis (principal)
CPT/HCPCS: 74177

== ENCOUNTER → 2021-09-05 13:09 | Outpatient (BNVA) | payer MEDICARE, SELFPAY | PROVIDERS: PCP Urology; Visit Provider Nurse Practitioner Family | DX: N10 Acute pyelonephritis (principal) | CPT/HCPCS: 51741; 51798; 81003; 87086; 99203 ==

== ENCOUNTER → 2021-10-15 14:05 | Outpatient (BNVA) | payer MEDICARE, SELFPAY | PROVIDERS: PCP Urology; Visit Provider Family Medicine | DX: R30.0 Dysuria (principal) | CPT/HCPCS: 81000; 81003 ==

== ENCOUNTER → 2021-10-18 09:58 | Outpatient (BNVA) | payer MEDICARE, SELFPAY | PROVIDERS: PCP Urology; Visit Provider Family Medicine | DX: N39.0 Urinary tract infection, site not specified (principal) | CPT/HCPCS: 81000 ==

== ENCOUNTER 2022-03-19 06:00 | Outpatient (RCR) | payer MEDICARE, SELFPAY | END 2022-03-20 23:59 | disposition home or self-care (01) | LOC: GOT 06:00 | PROVIDERS: PCP Urology; Visit Provider Physician Assistant | DX: S61.402S Unspecified open wound of left hand, sequela (principal); X58.XXXS Exposure to other specified factors, sequela | CPT/HCPCS: 97110; 97140; 97166 ==

== ENCOUNTER 2022-03-21 06:00 | Outpatient (RCR) | payer MEDICARE, SELFPAY | END 2022-04-20 23:59 | disposition home or self-care (01) | LOC: GOT 06:00 | PROVIDERS: PCP Urology; Visit Provider Physician Assistant | DX: S61.402S Unspecified open wound of left hand, sequela (principal); W34.00XS Accidental discharge from unspecified firearms or gun, sequela | CPT/HCPCS: 97110; 97140 ==

== ENCOUNTER → 2022-10-25 16:09 | Outpatient (BNVA) | payer MEDICARE, SELFPAY | PROVIDERS: PCP Urology; Visit Provider Nurse Practitioner Family | DX: R53.83 Other fatigue (principal); T14.8XXA Other injury of unspecified body region, initial encounter; W57.XXXA Bitten or stung by nonvenomous insect and other nonvenomous arthropods, initial encounter | CPT/HCPCS: 86000; 86618; 86666; 86757 ==

== ENCOUNTER → 2023-06-03 09:25 | Outpatient (BNVA) | payer MEDICARE, SELFPAY | PROVIDERS: PCP Urology; Visit Provider Family Medicine | DX: N45.1 Epididymitis (principal); I10 Essential (primary) hypertension; Z79.899 Other long term (current) drug therapy | CPT/HCPCS: 80053; 80061 ==

== ENCOUNTER → 2024-07-21 10:30 | Outpatient (BNVA) | payer MEDICARE, SELFPAY | PROVIDERS: PCP Urology; Visit Provider Nurse Practitioner Family | DX: I10 Essential (primary) hypertension (principal); W57.XXXA Bitten or stung by nonvenomous insect and other nonvenomous arthropods, initial encounter; E55.9 Vitamin D deficiency, unspecified; Z12.5 Encounter for screening for malignant neoplasm of prostate | CPT/HCPCS: 80053; 80061; 82306; 82607; 84403; 85025; 86160; 86618; 86666; 86668; 86757; G0103 ==

== ENCOUNTER → 2025-02-08 15:30 | Outpatient (BNVA) | payer MEDICARE, SELFPAY | PROVIDERS: PCP Urology; Visit Provider Nurse Practitioner Family | DX: L50.0 Allergic urticaria (principal) | CPT/HCPCS: 86003; 86008 ==